=== PATIENT | female | born 1970 | race Caucasian/White ===

== ENCOUNTER 2017-06-26 12:17 | Emergency (ER) | payer OTHER ==
--- NOTE | 2017-06-26 14:02 | PD ---
Physical Exam Date Seen by Provider: Jun 26, 2017 Time Seen by Provider: 14:01 Narrative 47-year-old female previously seen and evaluated at [place] emergency department , and medically cleared, is transferred here for psychiatric evaluation secondary to anxiety and depression with suicidal ideation. Please see note from [place] ED. Data Data Orders Orders Diet Regular Basic (06/26/17 Lunch) [facility] Medical Record Reviewed: Yes Supervised Visit with VALENCIA: Yes Narrative Course 47-year-old female previously seen and evaluated at [place] emergency department , and medically cleared, is transferred here for psychiatric evaluation secondary to anxiety and depression with suicidal ideation. Please see note from [place] ED. Psych screen ordered. Scripts No Active Prescriptions or Reported Meds Condition: Angel Degroot Jun 26, 2017 14:02
--- NOTE | 2017-06-26 18:54 | PD ---
Physical Exam Date Seen by Provider: Jun 26, 2017 Time Seen by Provider: 18:51 Narrative 47-year-old female previously medically cleared at [place] emergency department for psychiatric evaluation on a voluntary basis. Patient is now requesting to leave and follow-up on an outpatient basis with a psychiatrist. Patient agrees to contract for safety. She will follow-up on an outpatient basis as discussed. Patient is free to return at any time with worsening symptoms as needed. Data Data Orders Orders Diet Regular Basic (06/26/17 Lunch) Psych Screen (06/26/17 14:03) Diet Regular Basic (06/26/17 Dinner) MDM Medical Record Reviewed: Yes Supervised Visit with VALENCIA: Yes Narrative Course 47-year-old female previously medically cleared at [place] emergency department for psychiatric evaluation on a voluntary basis. Patient is now requesting to leave and follow-up on an outpatient basis with a psychiatrist. Patient agrees to contract for safety. She will follow-up on an outpatient basis as discussed. Patient is free to return at any time with worsening symptoms as needed. Diagnosis Primary Impression: Depression with anxiety Patient Instructions: General Instructions Additional Instruction: 47-year-old female previously medically cleared at [place] emergency department for psychiatric evaluation on a voluntary basis. Patient is now requesting to leave and follow-up on an outpatient basis with a psychiatrist. Patient agrees to contract for safety. She will follow-up on an outpatient basis as discussed. Patient is free to return at any time with worsening symptoms as needed. Med/Other Pt SpecificInfo: No Meds Exist/No RX given Scripts No Active Prescriptions or Reported Meds Disposition: DISCHARGE HOME Condition: Stable Angel Rodgers Jun 26, 2017 18:54
== END 2017-06-26 19:19 | disposition home or self-care (01) ==
LOC: NEPJ 12:17
DX: F41.8 Other specified anxiety disorders (principal); E87.6 Hypokalemia; F19.10 Other psychoactive substance abuse, uncomplicated; E78.00 Pure hypercholesterolemia, unspecified
CPT/HCPCS: 71046; 80053; 80307; 81001; 82550; 82552; 83735; 84484; 85025; 85610; 85730; 93005; 99283; 99285